=== PATIENT | female | born 1985 | race Hispanic/Latino ===

== ENCOUNTER 2016-09-03 13:29 | Emergency (ER) | payer OTHER ==
[2016-09-03 13:32] VITALS: BP 123/85; PULSE 96; RESP 14; O2SAT 100
--- NOTE | 2016-09-03 13:56 | ED.REPORT ---
HPI-General Illness Date of Service Sep 03, 2016 ED Provider: The patient is a 31 year old female with no pertinent medical history who presents to the emergency department complaining of epigastric abdominal pain that started 3 days ago. She has also experienced subjective fever, nausea and vomiting. She denies chills, hematemesis, diarrhea or bloody/tarry stool. This morning around 4 AM she noticed chest pain and shortness of breath. The chest pain has been constant all day. She describes the pain as a pressure. She has had chest pain in the past but was not evaluated. She takes medications intermittently that include: Flexeril, cyclobenzaprine, and antidepressants. Her LNMP was July 23. The patient took a test at home 2 days ago that was positive. She denies lower abdominal pain, vaginal bleeding or vaginal discharge. Nursing Notes Stated Complaint: CHEST PAIN/STOMACH PAIN Chief Complaint: Female Abdominal Pain Nursing Notes Reviewed: Yes Allergies: Coded Allergies: Penicillins (Verified Allergy, Severe, 09/03/16) Scheduled PRN Naproxen (Naproxen) 500 Mg Tab 500 MG PO BID PRN PRN For Pain Ondansetron ODT (Zofran ODT) 4 Mg Tablet 4 MG PO Q4H PRN PRN For Nausea General Time Seen by MD: 13:56 Chief Complaint Abdominal pain Hx Obtained From: Patient Arrived By: Walk-in Sudden in Onset?: No Onset Occurred: 3 days ago Symptom Duration: Intermittent Location: : Abdomen: Chest (pressure) Quality: Painful Severity: Current: Moderate Severity: Maximum: Severe Recent Healthcare: No recent doctor visit, No recent hospitalization Similar Sx Previous: No Past Medical History Past Medical History Depression Past Surgical History None reported Smoking History Unknown if Ever Smoker Social History Alcohol Use: "Social" Drug Use: THC Other Social History: Local resident Ambulatory Status Independent Review of Systems Full Review of Systems Constitutional: Reports: Fever (subjective), Denies: Chills Respiratory: Reports: Shortness of breath Cardiovascular: Reports: Chest pain GI: Reports: Abdominal pain, Nausea, Vomiting, Denies: Bloody/tarry stool, Diarrhea, Hematemesis, Hematochezia, Melena Female: Reports: , Denies: Pelvic pain, Vaginal bleeding - abnl, Vaginal discharge Complete sys rev & neg: except as marked. Physical Exam Vital Signs Vital Signs Date Time Temp Pulse Resp B/P Pulse Ox O2 Delivery O2 Flow Rate FiO2 09/03/16 18:13 37.1 85 20 119/68 100 Room Air 09/03/16 17:42 37.1 85 20 119/68 100 Room Air 09/03/16 15:53 36.8 73 20 98/65 99 Room Air 09/03/16 13:32 36.9 96 14 123/85 100 Room Air Initial VS: Reviewed Head / Eyes: Atraumatic, Normocephalic, PERRL ENT: Mucous membranes moist, Conjunctiva normal, No scleral icterus Neck: Supple, Non-tender, Full range of motion Cardiovascular: Regular rate & rhythm, Heart sounds normal, Intact distal pulses Lymphatic: No lymphadenopathy Extremities: Vascular intact, Neuro intact, No swelling, No tenderness Skin: Warm, Dry, No cyanosis Neurologic: Alert, Oriented, Nonfocal Psychiatric: Mood/affect normal, Behavior normal, Normal thought content General/Constitutional: Awake, Alert Appearance / Presentation: Positive: Obese Respiratory / Chest: Breath sounds = bilat, No respiratory distress Reproducible chest pain with movement of left arm. Left chest wall tenderness. Abdomen: Soft, No guarding, No rebound, BS normoactive, No distention, No hernia, No palpable mass, No pulsatile mass Tenderness/Guarding/Rebound: Positive: Tender LUQ... Interpretation & Diagnostics Lab Results Interpretation Result Diagram: 09/03/16 1501 09/03/16 1528 Test 09/03/16 15:01 09/03/16 15:28 09/03/16 16:00 White Blood Count 9.4th/mm3 (3.8-10.1) Red Blood Count 4.80mil/mm3 (3.90-5.20) Hemoglobin 12.2g/dL (12.0-15.6) Hematocrit 37.2% (35.0-46.0) Mean Corpuscular Volume 77.5fL (81-100) Mean Corpuscular Hemoglobin 25.4pg (27.0-35.0) Mean Corpuscular Hemoglobin Concent 32.8% (32.0-37.0) Red Cell Distribution Width 13.0% (12.3-15.4) Platelet Count 316bil/L (150-400) Neutrophils (%) (Auto) 70.8% (40-74) Lymphocytes (%) (Auto) 21.5% (14-46) Monocytes (%) (Auto) 5.9% (4-12) Eosinophils (%) (Auto) 1.2% (0-5) Basophils (%) (Auto) 0.4% (0-3) Sodium Level 140mEq/L (134-144) Potassium Level 3.8mEq/L (3.5-5.2) Chloride Level 106mEq/L (97-108) Carbon Dioxide Level 23mmol/L (18-29) Blood Urea Nitrogen 10mg/dL (6-20) Creatinine 0.61mg/dL (0.57-1.00) Estimat Glomerular Filtration Rate 165mL/min (>59) Glucose Level 97mg/dL (60-99) Lactic Acid Level 0.9mmol/L (0.4-2.0) Calcium Level 8.5mg/dL (8.5-10.1) Magnesium Level 1.9mg/dL (1.6-2.6) Total Bilirubin 0.4mg/dL (0.0-1.2) Aspartate Amino Transf (AST/SGOT) 12U/L (0-50) Alanine Aminotransferase (ALT/SGPT) 15U/L (0-32) Alkaline Phosphatase 82U/L (25-150) Troponin T < 0.010ug/L (0.0-0.011) Total Protein 6.4g/dL (6.4-8.4) Albumin 3.5g/dL (3.4-5.0) Lipase 21U/L (13-60) Hold Urine Received (Received) ECG Interpretation ECG Interpretation: Sinus rhythm with a rate of 81 Normal EKG Time: 14:09 Interpreted by: ED physician Re-Eval/Medical Decision Med Decision/Clinical Course No obvious life threatening pathology identified. Feeling better without narcotic medications. Unlikely to be a heart attack. Low risk by well's criteria and perc negative. Patient will be discharged with naproxen and Zofran. Return precautions given. Source of Hx: Old records Time of Eval: 16:30 Re-Evaluation/Progress Note: The patient is feeling better. Time of Eval: 17:24 Re-Evaluation/Progress Note: Rechecked the patient. She is feeling better but still complains of some mild chest pain. Discussed results, diagnosis, and plan for discharge. All questions were addressed. Counseled Regarding: Diagnosis, Lab results, Need for follow-up, When/why to return to ED Discharge & Departure Primary Impression: Chest pain Chest pain type: unspecified Qualified Code: R07.9 - Chest pain, unspecified Additional Impressions: Epigastric abdominal pain Nausea & vomiting Vomiting type: unspecified Vomiting Intractability: non-intractable Qualified Code: R11.2 - Nausea with vomiting, unspecified Disposition: Home Discharge Condition All VS Reviewed: Yes Condition: Stable Patient Instructions: Chest Pain (ED) Additional Instructions: Thank you for entrusting us with your care today. Your workup today is reassuring. There is no evidence of an acute heart attack at this time. Your urine test today did not show evidence of . You can use naproxen as needed for pain and Zofran as needed for nausea. Followup with your regular doctor next week for re-evaluation. Return to the emergency department for any new or concerning symptoms. Referrals: Chano Worley DO (PCP) [facility] Attestation Portions of this note were transcribed by Pam Ramirez. I, Dr. Esparza personally performed the history, physical exam and medical decision-making; I reviewed and confirmed the accuracy of the information in the transcribed note. Signed by: Shreyas Ledezma, 09/03/2016 at 1800. copies to: Chano Worley Timothy S DO Sep 03, 2016 13:56 Pam Ramirez Sep 03, 2016 14:04
[2016-09-03] MEDS ORDERED: LidocaineVisc 2%:Antacid 1:1 10 mL Syringe PO ONE (14:15)
[2016-09-03] MEDS ORDERED: 0.9% Sodium Chloride 1,000 ML IV ONE (14:24)
[2016-09-03] MEDS ORDERED: Ondansetron 2 mg/mL 2 mL Inj IVPUSH PRN (14:25)
[2016-09-03] MEDS ORDERED: HYDROmorphone 0.5 mg/0.5 mL iSecure Syringe IVPUSH PRN (14:25)
[2016-09-03 15:09] LABS: BASOPHILS % (AUTO) 0.4 % (0-3); EOSINOPHILS % (AUTO) 1.2 % (0-5); MONOCYTES % (AUTO) 5.9 % (4-12); Mean Corpuscular Hemoglobin 25.4 pg (27.0-35.0); Mean Corpuscular Volume 77.5 fL (81-100); NEUTROPHILS % (AUTO) 70.8 % (40-74); Platelet Count 316 bil/L (150-400)
[2016-09-03 15:53] VITALS: BP 98/65; PULSE 73; RESP 20; O2SAT 99
[2016-09-03 16:05] LABS: TROPONIN T < 0.010 ug/L (0.0-0.011)
[2016-09-03 16:13] LABS: Lipase 21 U/L (13-60); Magnesium 1.9 mg/dL (1.6-2.6)
[2016-09-03] MEDS ORDERED: Ketorolac 15 mg/mL Inj IVPUSH ONE (17:25)
[2016-09-03] MEDS ORDERED: NPR500T PO (17:37)
[2016-09-03] MEDS ORDERED: ONDA4TAB9 PO (17:37)
[2016-09-03 17:42] VITALS: BP 119/68; PULSE 85; RESP 20; O2SAT 100
[2016-09-03 18:13] VITALS: BP 119/68; PULSE 85; RESP 20; O2SAT 100
== END 2016-09-03 18:14 | disposition home or self-care (01) ==
LOC: SED 13:29
DX: R07.89 Other chest pain (principal); R10.13 Epigastric pain; R11.2 Nausea with vomiting, unspecified; F32.9 Major depressive disorder, single episode, unspecified; Z88.0 Allergy status to penicillin
CPT/HCPCS: 36415; 80053; 81025; 83605; 83690; 83735; 84484; 85025; 93005; 96361; 96374; 96375; 99285; J1885; J2405; J7030